=== PATIENT | female | born 1975 | race African-American/Black ===

== ENCOUNTER 2019-12-17 18:17 | Emergency (ER) | payer MEDICAID ==
[~2019-12-17] VITALS: Ht 172.7 cm; Wt 95.3 kg
[2019-12-17] MEDS ORDERED: DOXYCYCLINE 10100 MG PO (19:38)
[2019-12-17] MEDS ORDERED: PROAIR HFA8.5 GM INH (19:38)
[2019-12-17] MEDS ORDERED: PROMETH-CODEIN 65 ML PO (19:38)
[2019-12-17 20:21] VITALS: BP 109/78
== END 2019-12-17 20:22 | disposition home or self-care (01) ==
LOC: ER 18:17
DX: J10.1 Influenza due to other identified influenza virus with other respiratory manifestations (principal); J18.9 Pneumonia, unspecified organism; R05 Cough; I10 Essential (primary) hypertension; E03.9 Hypothyroidism, unspecified; F17.210 Nicotine dependence, cigarettes, uncomplicated

== ENCOUNTER 2019-12-22 17:46 | Emergency (ER) | payer MEDICAID ==
[~2019-12-22] VITALS: Ht 175.3 cm; Wt 95.3 kg
[~2019-12-22 17:46] MED LIST: DOXYCYCLINE 10100 MG PO; PROAIR HFA8.5 GM INH; PROMETH-CODEIN 65 ML PO
[2019-12-22] MEDS ORDERED: VYVANSE70 MG PO (18:12)
[2019-12-22] MEDS ORDERED: SYNTHROID100 MC1 PO (18:12)
[2019-12-22] MEDS ORDERED: AZOR 10-20 MG1 EACH PO (18:13)
[2019-12-22] MEDS ORDERED: METFORMIN HCL500 M3 PO (18:13)
[2019-12-22 18:42] LABS: ABSOLUTE NEUTROPHILS 1.8 thou/uL (1.4-8.2); EOSINOPHILS 1.1 % (0.0-3.0); HEMATOCRIT 40.3 % (37.0-47.0); HEMOGLOBIN 13.5 gm/dL (12.0-15.0); LYMPHOCYTES 54.5 % (24.0-44.0); MCH 30.7 pg (26.0-34.0); MCHC 33.4 g/dL (28.0-37.0); MONOCYTES 6.2 % (1.0-8.0); PLATELET COUNT 292 thou/uL (150-400); POLYS 37.2 % (36.0-66.0); RBC 4.38 mil/uL (4.20-5.00); WBC 4.9 thou/uL (4.0-11.0)
[2019-12-22 19:03] LABS: CALCIUM 8.5 mg/dL (8.5-10.1); POTASSIUM 3.6 mmol/L (3.5-5.1)
[2019-12-22 19:07] LABS: ALBUMIN 3.9 g/dL (3.4-5.0); MAGNESIUM 2.1 mg/dL (1.8-2.4); TOTAL BILIRUBIN 0.7 mg/dL (<0.1-1.0); TOTAL PROTEIN 8.6 g/dL (6.4-8.2)
[2019-12-22] MEDS ORDERED: VENTOLIN HFA 1818 GM INH (19:38)
[2019-12-22] MEDS ORDERED: IBUPROFEN 600600 M1 PO (19:39)
[2019-12-22 20:16] VITALS: BP 132/70
--- NOTE | 2019-12-23 08:20 | EKG ---
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: MIGUEL : 1975 Requested By: Tri Burton Order Number: [id number] MD: Nahum Tran Measurements Intervals [place] Rate: 72 P: 50 MS: 162 QRS: 17 QRSD: 75 T: 133 QT: 495 QTc: 542 Interpretive Statements Sinus rhythm Probable left atrial enlargement Nonspecific T abnrm, anterolateral leads Prolonged QT interval No previous ECG available for comparison Electronically Signed On 12-23-2019 8:19:41 WATERWORKS SUPERVISOR by Nahum Tran [email or web address] <ELECTRONICALLY SIGNED> By: Nahum Tran MD 12/23/19 0819 [id number] Nahum Tran MD /EPI
== END 2019-12-22 20:17 | disposition home or self-care (01) ==
LOC: ER 17:46
PROVIDERS: Physician Assistant
DX: R07.89 Other chest pain (principal); J18.9 Pneumonia, unspecified organism; R05 Cough; I10 Essential (primary) hypertension; E03.9 Hypothyroidism, unspecified; F17.210 Nicotine dependence, cigarettes, uncomplicated

== ENCOUNTER 2020-01-13 03:28 | Emergency (ER) | payer MEDICAID ==
[~2020-01-13] VITALS: Ht 172.7 cm; Wt 95.3 kg
[~2020-01-13 03:28] MED LIST changes: +AZOR 10-20 MG1 EACH PO; +IBUPROFEN 600600 M1 PO; +METFORMIN HCL500 M3 PO; +SYNTHROID100 MC1 PO; +VENTOLIN HFA 1818 GM INH; +VYVANSE70 MG PO
[2020-01-13 04:33] LABS: URINE BILIRUBIN NEGATIVE (Negative); URINE BLOOD NEGATIVE (Negative); URINE CLARITY CLOUDY; URINE COLOR YELLOW; URINE GLUCOSE-RANDOM* NEGATIVE (Negative); URINE KETONES NEGATIVE (Negative); URINE LEUKOCYTES-REFLEX NEGATIVE (Negative); URINE NITRITE-REFLEX NEGATIVE (Negative); URINE PROTEIN (DIPSTICK) NEGATIVE (Negative)
[2020-01-13 04:56] VITALS: BP 150/102
== END 2020-01-13 04:51 | disposition home or self-care (01) ==
LOC: ER 03:28
PROVIDERS: Emergency Medicine
DX: J06.9 Acute upper respiratory infection, unspecified (principal); I10 Essential (primary) hypertension; E11.9 Type 2 diabetes mellitus without complications; E03.9 Hypothyroidism, unspecified; Z98.84 Bariatric surgery status; Z79.899 Other long term (current) drug therapy

== ENCOUNTER 2020-09-05 01:11 | Emergency (ER) | payer MEDICAID ==
[~2020-09-05] VITALS: Ht 172.7 cm; Wt 93.0 kg
[2020-09-05 02:17] LABS: ABSOLUTE NEUTROPHILS 3.7 thou/uL (1.4-8.2); BASOPHILS 0.7 % (0.0-2.0); EOSINOPHILS 1.1 % (0.0-3.0); HEMATOCRIT 30.8 % (37.0-47.0); HEMOGLOBIN 10.2 gm/dL (12.0-15.0); LYMPHOCYTES 27.7 % (24.0-44.0); MCH 32.1 pg (26.0-34.0); MCHC 33.1 g/dL (28.0-37.0); MCV 96.7 fL (80.0-100.0); MONOCYTES 6.2 % (1.0-8.0); PLATELET COUNT 192 thou/uL (150-400); POLYS 64.3 % (36.0-66.0); RBC 3.19 mil/uL (4.20-5.00); RDW 13.3 % (10.5-14.5); WBC 5.8 thou/uL (4.0-11.0)
[2020-09-05 02:22] LABS: ANION GAP 8 mmol/L (7-16); BUN 19 mg/dL (7-18); CALCIUM 8.4 mg/dL (8.5-10.1); CHLORIDE 102 mmol/L (98-107); CO2 29 mmol/L (21-32); CREATININE 1.3 mg/dL (0.6-1.0); GLUCOSE 114 mg/dL (74-106); POTASSIUM 3.7 mmol/L (3.5-5.1); SODIUM 139 mmol/L (136-145)
[2020-09-05 02:32] LABS: TROPONIN-I <0.06 ng/mL (<0.06)
[2020-09-05 02:44] VITALS: BP 112/78
--- NOTE | 2020-09-06 07:49 | EKG ---
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: [facility] : 1975 Requested By: Ghulam Lui Order Number: [id number] MD: Jeferson Monte Measurements Intervals [place] Rate: 61 P: 54 ID: 192 QRS: 31 QRSD: 100 T: 30 QT: 423 QTc: 426 Interpretive Statements Sinus rhythm Borderline ST elevation Compared to ECG 09/05/2020 01:25:15 No significant changes Electronically Signed On 09-06-2020 7:49:36 CONTOUR BAND SAW OPERATOR VERTICAL by Jeferson Monte [email or web address] <ELECTRONICALLY SIGNED> By: Jeferson Monte MD, FACC 09/06/20 0749 9 Jeferson Monte MD, [facility] /EPI
--- NOTE | 2020-09-06 07:49 | EKG ---
[facility] [place] [address] ELECTROCARDIOGRAM REPORT Name: 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: [facility] : 1975 Requested By: Ghulam Lui Order Number: [id number] MD: Jeferson Monte Measurements Intervals [place] Rate: 61 P: 48 CT: 185 QRS: 25 QRSD: 96 T: 18 QT: 426 QTc: 429 Interpretive Statements Sinus rhythm ST elevation suggests acute pericarditis Compared to ECG 12/22/2019 17:52:55 ST (T wave) deviation now present Prolonged QT interval no longer present Electronically Signed On 09-06-2020 7:49:02 NETWORK COMMUNICATIONS ENGINEER by Jeferson Monte [email or web address] <ELECTRONICALLY SIGNED> By: Jeferson Monte MD, FACC 09/06/20 0749 0125 [id number] Jeferson Monte MD, [facility] /EPI
== END 2020-09-05 03:40 | disposition home or self-care (01) ==
LOC: ER 01:11
PROVIDERS: Emergency Medicine
DX: R55 Syncope and collapse (principal); I10 Essential (primary) hypertension; E03.9 Hypothyroidism, unspecified; Z79.899 Other long term (current) drug therapy